=== PATIENT | female | born 1965 | race Caucasian/White ===

== ENCOUNTER 2020-04-25 08:45 | Inpatient (IN) | payer BC ==
[~2020-04-25] VITALS: Ht 182.9 cm; Wt 100.7 kg
[~2020-04-25 08:45] MED LIST: LORTAB 5/500 501 TAB PO
[2020-07-05] VITALS (10 sets, daily range): BP systolic 113–184; BP diastolic 49–88; PULSE 78–96; TEMP 97.6–98.2
[2020-07-05] MEDS ORDERED: PRINIVIL10 MG PO (07:19)
[2020-07-05] MEDS ORDERED: NORCO 325 MG-51 TAB PO (07:19)
[2020-07-05] MEDS ORDERED: VITAMIN C500 MG PO (07:20)
[2020-07-05] MEDS ORDERED: FOLIC ACID 40400 MCG PO (07:23)
[2020-07-05] MEDS ORDERED: HYGROTON 2525 MG/TAB PO (07:24)
[2020-07-05] MEDS ORDERED: FERROUS SU325 MG/TAB PO (07:25)
--- NOTE | 2020-07-05 11:35 | NUR ---
Pt arrived to floor at this time with PACU staff. Resting quietly, states pain is 5/10 to R hip but pt is sleepy at this time. Ice pack to hip, dressing is CDI and bulky. TEDS and SCDs in place. Will continue to monitor.
--- NOTE | 2020-07-05 18:36 | NUR ---
Pt has had pain issues this afternoon, PRN IV and PO meds given, ice pack to R heel for pain there as well as R hip. Pt doing better now. Will give bedside shift report to nightshift edgardo who will reusme care.
--- NOTE | 2020-07-05 20:00 | NUR ---
Pt. sitting up in bed at this time. Pt. is A&OX3, assessment complete. INT to lt. hand patent. Pt. reports pain at a 7 on pain scale, will give pain meds per orders. Pt. denies further needs, call light within reach.
[2020-07-06 00:29] VITALS: BP 137/62; PULSE 92; TEMP 97.8
[2020-07-06 04:56] VITALS: BP 133/65; PULSE 96; TEMP 98.3
[2020-07-06 06:50] LABS: HEMOGLOBIN 11.5 g/dl (12.5-16.0)
[2020-07-06 07:03] LABS: HEMATOCRIT 34.5 % (37.0-47.0)
[2020-07-06 07:25] VITALS: BP 122/67; PULSE 81; TEMP 98
--- NOTE | 2020-07-06 10:17 | NUR ---
UPON ENTRY TO THE ROOM THE PATIENT IS SITTING UP IN THE CHAIR THIS MORNING FOLLOWING THERAPY SESSION. PATIENT GIVEN PRN PAIN MEDICATION AT THIS TIME. PATIENT ASSISTED SELF TO BED WITH A WALKER. RIGHT HIP OCCLUSIVE DRESSING REMOVED. EDGES OF RIGHT HIP INCISION ARE WELL APROXIMATED. OCCLUSIVE DRESSING CHANGED TO AN AQUACEL DRESSING THIS MORNING PRIOR TO SHOWERING WITH THERAPY. CALL LIGHT IN REACH. PATIENT DENIES ANY OTHER NEEDS AT THIS TIME.
[2020-07-06 11:39] VITALS: BP 123/86; PULSE 84; TEMP 98
--- NOTE | 2020-07-06 13:03 | NUR ---
KRISTI met with the patient to discuss discharge plan. The patient lives in [place] with her , Brandon ([id number]#[phone]), and their son. She reports independence with ADLs and has a cane, walker, wheelchair, and chairlift. The patient's PCP is Dr. Lui Mir and she receives her medications from [facility]. She reports no difficulties obtaining her meds. The patient does not have a DPOA-HC and she was not interested in completing one at this time. The patient plans to return home with her family and receive outpatient PT at [facility] upon discharge. No additional needs at this time.
[2020-07-06] MEDS ORDERED: ASPI325T6 PO (13:24)
[2020-07-06] MEDS ORDERED: CELEBREX 200MG200 MG PO (13:25)
[2020-07-06] MEDS ORDERED: ROXICODONE 55 MG/TAB PO (13:27)
[2020-07-06] MEDS ORDERED: ULTRAM 50MG TAB50 MG PO (13:28)
[2020-07-06] MEDS ORDERED: SENOKOT S 50 MG1 TAB PO (13:28)
--- NOTE | 2020-07-06 13:30 | NUR ---
LEFT HAND INT DISCONTINUED PER PENDING DISCHARGE, AND PRIOR TO PATIENT SHOWERING WITH OT. TIP INTACT. PATIENT TOLERATED WELL.
--- NOTE | 2020-07-06 13:33 | NUR ---
First visit from the ag equipment field service technician. No needs right now.
--- NOTE | 2020-07-06 15:51 | NUR ---
PATIENT GIVEN PRN PO PAIN MEDICATION PRIOR TO DISCHARGE. DISCHARGE INSTRUCTIONS REVIEWED WITH PATIENT. QUESTIONS SOUGHT AND ANSWERED. PATIENT PERSONAL BELONGINGS GATHERED. AWAITING RIDE FOR DISCHARGE.
--- NOTE | 2020-07-06 16:02 | NUR ---
PATIENT TAKEN TO PERSONAL VEHICLE VIA WHEELCHAIR BY SURGICAL STAFF. PATIENT DISCHARGED.
== END 2020-07-06 16:02 | disposition home or self-care (01) | DRG 470 ==
LOC: JCC 05-16 10:30 → INPTSU 07-05 05:16 → JCC 07-05 05:16
PROVIDERS: ADMIT Orthopaedic Surgery
PROC: 0SR90JA Replacement of Right Hip Joint with Synthetic Substitute, Uncemented, Open Approach (ICD-10-PCS; principal; 2020-07-05 07:30)
DX: M16.11 Unilateral primary osteoarthritis, right hip (principal); Z20.828 Contact with and (suspected) exposure to other viral communicable diseases; Z88.0 Allergy status to penicillin
CPT/HCPCS: A4314; C1713; C1776; J0690; J1100; J1170; J1885; J2250; J2270; J2370; J2405; J2704; J3010; J7030; J7120

== ENCOUNTER → 2020-06-23 | Outpatient (CLI) | payer BC | LOC: COL.LAB 11:08 | DX: M16.11 Unilateral primary osteoarthritis, right hip (principal) ==